=== PATIENT | male | born 1975 | race Caucasian/White ===

== ENCOUNTER 2018-03-19 09:05 | Inpatient (IN) | payer MEDICAID ==
[~2018-03-19] VITALS: Ht 165.1 cm; Wt 73.5 kg
--- NOTE | ~2018-03-19 | OP ---
PATIENT NAME: ZACARIAS OLVERA MEDICAL RECORD: [id number] LOCATION:[id number] ADMISSION DATE:03/19/18 SURGEON: ZACARIAS QIU MD DATE OF OPERATION: 03/20/2018 PREOPERATIVE DIAGNOSIS: Cellulitis with infected forearm laceration containing necrotic skin and subcutaneous tissue. POSTOPERATIVE DIAGNOSIS: Cellulitis with infected forearm laceration containing necrotic skin and subcutaneous tissue. Please see dimensions below. PROCEDURE: Sharp excisional debridement of left forearm. The dimensions of debridement, including margins, measures 4.0 x 1.3 cm including skin and subcutaneous tissue. SURGEON: Zacarias Qiu MD GEAR GRINDER: None. BLOOD LOSS: Minimal. ANESTHESIA: General. COMPLICATIONS: None. The risks, possible complications, and alternatives to the procedure were explained to the patient. He elects to proceed. OPERATIVE COURSE: The patient was conveyed the operating room electively on 03/20/2018. General anesthesia was induced by the anesthesia staff. The left forearm was sterilely prepped and draped. Utilizing a scalpel, I grasped the skin and subcutaneous flap that was necrotic. It was excised. It was triangular in shape. The depth of the excisional debridement was 4 mm. I then curetted out the base of the wound. Meticulous hemostasis was achieved with the electrocautery after cultures were obtained. A saline wet-to-dry dressing was then applied. The patient was then extubated and conveyed to postanesthesia care unit, where he was in stable condition. I plan to dismiss him home once his cellulitis begins to resolve. There is still no evidence of suppurative tenosynovitis. TRANSINT:[id number] Voice Confirmation ID: [id number] DOCUMENT ID: [id number] ZACARIAS QIU MD at 1718 CC: [id number] DICTATION DATE: 03/20/18 1424 REEL AND REWINDER OPERATOR: 03/20/18 1647 ADM IN [place] [id number] [place] [address]
[2018-03-19 10:26] LABS: BASOPHILS 0.6 % (0-2); EOSINOPHILS 5.6 % (0-7); HEMATOCRIT 40.8 % (42.0-54.0); HEMOGLOBIN 14.2 g/dL (13.5-17.5); IMMATURE GRANULOCYTES 0.5 % (0-5); LYMPHOCYTES 31.8 % (15-50); MCHC 34.8 g/dL (31.0-37.0); MCV 94.9 fL (80.0-100.0); MEAN PLATELET VOLUME 9.3 fL (7.4-10.4); MONOCYTES 9.8 % (2-11); NEUTROPHILS 51.7 % (40-80); PLATELET COUNT 263 10x3/uL (130-400); RDW 12.6 % (11.5-14.5); WBC 8.1 10x3/uL (4.8-10.8)
[2018-03-19 10:51] LABS: ALBUMIN 3.7 g/dL (3.4-5.0); ALKALINE PHOSPHATASE 94 U/L (46-116); ALT (SGPT) 64 U/L (10-68); BILIRUBIN - TOTAL 0.25 mg/dL (0.2-1.3); CALC OSMOLALITY 275 mosm/kg (275-300); CALCIUM 8.8 mg/dL (8.5-10.1); CARBON DIOXIDE 26.6 mmol/L (21.0-32.0); CHLORIDE - SERUM 102 mmol/L (98-107); CREATININE - SERUM 1.1 mg/dL (0.6-1.3); GLUCOSE 124 mg/dL (74-106); POTASSIUM - SERUM 4.1 mmol/L (3.5-5.1); PROTEIN - SERUM 7.3 g/dL (6.4-8.2); SODIUM 137 mmol/L (136-145); UREA NITROGEN 15 mg/dL (7-18); eGFR NON AFRICAN AMERICAN 78 mL/min (90-120)
[2018-03-19 12:00] VITALS: BP 123/78; BMI 27.1
[2018-03-19 15:45] VITALS: BP 134/90
[2018-03-19 21:24] VITALS: BP 129/73
[2018-03-20 05:19] VITALS: BP 122/89
[2018-03-20 06:19] LABS: BASOPHILS 0.6 % (0-2); EOSINOPHILS 5.5 % (0-7); HEMATOCRIT 42.9 % (42.0-54.0); HEMOGLOBIN 14.7 g/dL (13.5-17.5); IMMATURE GRANULOCYTES 0.6 % (0-5); LYMPHOCYTES 26.1 % (15-50); MCH 32.8 pg (26.0-34.0); MCHC 34.3 g/dL (31.0-37.0); MCV 95.8 fL (80.0-100.0); MEAN PLATELET VOLUME 9.6 fL (7.4-10.4); MONOCYTES 8.5 % (2-11); NEUTROPHILS 58.7 % (40-80); PLATELET COUNT 277 10x3/uL (130-400); RBC 4.48 10x6/uL (4.20-6.10); RDW 12.7 % (11.5-14.5); WBC 8.8 10x3/uL (4.8-10.8)
[2018-03-20 06:48] LABS: ALBUMIN 3.3 g/dL (3.4-5.0); ALKALINE PHOSPHATASE 79 U/L (46-116); ALT (SGPT) 62 U/L (10-68); CALC OSMOLALITY 276 mosm/kg (275-300); CALCIUM 8.5 mg/dL (8.5-10.1); CARBON DIOXIDE 26.6 mmol/L (21.0-32.0); CHLORIDE - SERUM 104 mmol/L (98-107); CREATININE - SERUM 0.9 mg/dL (0.6-1.3); GLUCOSE 109 mg/dL (74-106); PHOSPHOROUS 3.5 mg/dL (2.5-4.9); POTASSIUM - SERUM 4.2 mmol/L (3.5-5.1); PROTEIN - SERUM 6.4 g/dL (6.4-8.2); SODIUM 138 mmol/L (136-145); UREA NITROGEN 12 mg/dL (7-18); eGFR NON AFRICAN AMERICAN > 90 mL/min (90-120)
[2018-03-20 09:16] VITALS: BP 134/85
[2018-03-20 10:30] VITALS: Ht 165.1 cm; Wt 73.5 kg
[2018-03-20 15:01] VITALS: BP 121/71
[2018-03-21 05:01] VITALS: BP 113/78
[2018-03-21 15:37] VITALS: BP 115/74
[2018-03-21 20:00] VITALS: BP 139/83
[2018-03-22 04:00] VITALS: BP 111/57
[2018-03-22] MEDS ORDERED: NORCO-10 PO (11:33)
[2018-03-22] MEDS ORDERED: VIBRAMYCIN50 MG PO (11:40)
== END 2018-03-22 14:57 | disposition home or self-care (01) | DRG 571 ==
LOC: D.ER 09:05 → D.MS 09:54 → D.EDHOLD 09:54 → OBSVTIME 09:55 → D.MS 11:19
PROVIDERS: Family Medicine; Surgery
PROC: 0JBH0ZZ Excision of Left Lower Arm Subcutaneous Tissue and Fascia, Open Approach (ICD-10-PCS; principal; 2018-03-20 12:00)
DX: S51.812A Laceration without foreign body of left forearm, initial encounter (principal); L03.114 Cellulitis of left upper limb; W25.XXXA Contact with sharp glass, initial encounter; F17.210 Nicotine dependence, cigarettes, uncomplicated; Z72.89 Other problems related to lifestyle

== ENCOUNTER 2018-05-09 18:21 | Emergency (ER) | payer MEDICAID ==
[2018-05-09 18:43] LABS: APPEARANCE CLEAR (CLEAR); BILIRUBIN NEGATIVE (NEGATIVE); COLOR YELLOW (YELLOW); GLUCOSE NEGATIVE (NEGATIVE); KETONE NEGATIVE (NEGATIVE); NITRITE NEGATIVE (NEGATIVE); PROTEIN NEGATIVE (NEGATIVE); SPECIFIC GRAVITY 1.015 (1.005-1.020); UROBILINOGEN NORMAL (NORMAL)
[2018-05-09 18:51] LABS: UDS - AMPHET NEGATIVE QUAL (NEGATIVE); UDS - BARB NEGATIVE QUAL (NEGATIVE); UDS - BENZO NEGATIVE QUAL (NEGATIVE); UDS - COCAINE NEGATIVE QUAL (NEGATIVE); UDS - OPIATE NEGATIVE QUAL (NEGATIVE); UDS - PCP NEGATIVE QUAL (NEGATIVE); UDS - THC NEGATIVE QUAL (NEGATIVE)
[2018-05-09 18:55] LABS: BASOPHILS 0.4 % (0-2); EOSINOPHILS 4.8 % (0-7); HEMATOCRIT 41.7 % (42.0-54.0); HEMOGLOBIN 14.8 g/dL (13.5-17.5); IMMATURE GRANULOCYTES 0.4 % (0-5); LYMPHOCYTES 25.2 % (15-50); MCH 32.9 pg (26.0-34.0); MCHC 35.5 g/dL (31.0-37.0); MCV 92.7 fL (80.0-100.0); MEAN PLATELET VOLUME 8.9 fL (7.4-10.4); MONOCYTES 6.2 % (2-11); PLATELET COUNT 310 10x3/uL (130-400); RDW 12.3 % (11.5-14.5); WBC 11.1 10x3/uL (4.8-10.8)
[2018-05-09 19:10] LABS: ALBUMIN 3.7 g/dL (3.4-5.0); ALKALINE PHOSPHATASE 100 U/L (46-116); ALT (SGPT) 49 U/L (10-68); BILIRUBIN - TOTAL 0.47 mg/dL (0.2-1.3); CALC OSMOLALITY 275 mosm/kg (275-300); CALCIUM 8.9 mg/dL (8.5-10.1); CHLORIDE - SERUM 101 mmol/L (98-107); CREATININE - SERUM 0.9 mg/dL (0.6-1.3); GLUCOSE 95 mg/dL (74-106); POTASSIUM - SERUM 3.7 mmol/L (3.5-5.1); PROTEIN - SERUM 7.6 g/dL (6.4-8.2); SODIUM 138 mmol/L (136-145); UREA NITROGEN 12 mg/dL (7-18); eGFR NON AFRICAN AMERICAN > 90 mL/min (90-120)
== END 2018-05-10 00:20 ==
LOC: D.ER 18:21
PROVIDERS: Emergency Medicine
DX: F32.9 Major depressive disorder, single episode, unspecified (principal); R45.851 Suicidal ideations; F17.200 Nicotine dependence, unspecified, uncomplicated

== ENCOUNTER 2018-06-04 15:51 | Emergency (ER) | payer MEDICAID ==
[~2018-06-04] VITALS: Ht 165.1 cm; Wt 73.4 kg
[~2018-06-04 15:51] MED LIST: NORCO-10 PO; VIBRAMYCIN50 MG PO
[2018-06-04 16:07] VITALS: Ht 165.1 cm; Wt 73.4 kg
[2018-06-04] MEDS ORDERED: LITHIUM CARBON300 MG PO (16:08)
[2018-06-04] MEDS ORDERED: VALIUM10 MG PO (16:08)
[2018-06-04] MEDS ORDERED: CELEXA10 MG PO (16:09)
[2018-06-04 16:43] LABS: BASOPHILS 0.2 % (0-2); EOSINOPHILS 2.3 % (0-7); HEMATOCRIT 39.2 % (42.0-54.0); HEMOGLOBIN 14.3 g/dL (13.5-17.5); IMMATURE GRANULOCYTES 0.3 % (0-5); LYMPHOCYTES 13.6 % (15-50); MCH 32.5 pg (26.0-34.0); MCHC 36.5 g/dL (31.0-37.0); MCV 89.1 fL (80.0-100.0); MEAN PLATELET VOLUME 9.8 fL (7.4-10.4); MONOCYTES 6.7 % (2-11); NEUTROPHILS 76.9 % (40-80); PLATELET COUNT 348 10x3/uL (130-400); RDW 12.4 % (11.5-14.5); WBC 17.5 10x3/uL (4.8-10.8)
[2018-06-04 16:43] LABS: UDS - AMPHET NEGATIVE QUAL (NEGATIVE); UDS - BARB NEGATIVE QUAL (NEGATIVE); UDS - BENZO POSITIVE QUAL (NEGATIVE); UDS - COCAINE NEGATIVE QUAL (NEGATIVE); UDS - OPIATE NEGATIVE QUAL (NEGATIVE); UDS - PCP NEGATIVE QUAL (NEGATIVE); UDS - THC POSITIVE QUAL (NEGATIVE)
[2018-06-04 16:46] LABS: APPEARANCE CLEAR (CLEAR); COLOR YELLOW (YELLOW)
[2018-06-04 16:47] LABS: BILIRUBIN NEGATIVE (NEGATIVE); GLUCOSE NEGATIVE (NEGATIVE); KETONE NEGATIVE (NEGATIVE); NITRITE NEGATIVE (NEGATIVE); PROTEIN TRACE mg/dL (NEGATIVE); SPECIFIC GRAVITY 1.015 (1.005-1.020); UROBILINOGEN NORMAL (NORMAL)
[2018-06-04 16:48] LABS: BACTERIA FEW /hpf (NONE SEEN); WHITE CELLS - URINE OCC /hpf (0-5)
[2018-06-04 17:01] LABS: ALBUMIN 4.1 g/dL (3.4-5.0); ANION GAP 13.6 mmol/L (8-16); BILIRUBIN - TOTAL 1.56 mg/dL (0.2-1.3); CALCIUM 9.5 mg/dL (8.5-10.1); CARBON DIOXIDE 26.9 mmol/L (21.0-32.0); CREATININE - SERUM 1.3 mg/dL (0.6-1.3); LITHIUM 0.93 mmol/L (0.60-1.20); MAGNESIUM - SERUM 2.1 mg/dL (1.8-2.4); POTASSIUM - SERUM 3.5 mmol/L (3.5-5.1); PROTEIN - SERUM 7.8 g/dL (6.4-8.2); SALICYLATES 0.3 mg/dL (2.8-20.0)
[2018-06-04 20:33] VITALS: BP 123/78
== END 2018-06-04 21:07 ==
LOC: D.ER 15:51
PROVIDERS: Family Medicine
DX: F41.9 Anxiety disorder, unspecified (principal); F32.9 Major depressive disorder, single episode, unspecified; R45.851 Suicidal ideations